=== PATIENT | male | born 1970 | race Caucasian/White ===

== ENCOUNTER 2024-03-08 17:07 | Emergency (ER) | payer SELFPAY ==
[~2024-03-08] VITALS: Ht 180.3 cm; Wt 99.8 kg
[2024-03-08 18:10] VITALS: PULSE 84; RESP 16; TEMP 98.3; O2SAT 98
== END 2024-03-08 19:24 | disposition short-term general hospital (02) ==
LOC: ER 18:02
DX: R10.9 Unspecified abdominal pain (principal)